=== PATIENT | male | born 1990 | race Caucasian/White ===

== ENCOUNTER → 2017-03-15 | Outpatient (REF) | payer OTHER ==
[~2017-03-15] MED LIST: AMOX250S53; TYLENOL WITH CODEINE; VICO5TAB
== END ==
LOC: M LAB REF 13:01
PROVIDERS: ATTEND Physician Assistant Medical
DX: H92.21 Otorrhagia, right ear (principal)

== ENCOUNTER → 2017-08-03 | Outpatient (REF) | payer OTHER | LOC: M LAB REF 16:46 | DX: H92.11 Otorrhea, right ear (principal) | CPT/HCPCS: 87070 ==

== ENCOUNTER → 2018-07-31 | Outpatient (REF) | payer OTHER | LOC: M LAB REF 14:14 | PROVIDERS: ATTEND Physician Assistant Medical | DX: H66.003 Acute suppurative otitis media without spontaneous rupture of ear drum, bilateral (principal) ==

== ENCOUNTER → 2019-12-26 | Outpatient (REF) | payer OTHER | LOC: M LAB REF 12:08 | PROVIDERS: ATTEND Physician Assistant Medical | DX: H92.11 Otorrhea, right ear (principal) ==

== ENCOUNTER → 2020-07-10 | Outpatient (REF) | payer OTHER | LOC: M LAB REF 15:46 | PROVIDERS: ATTEND Nurse Practitioner Women's Health | DX: H92.11 Otorrhea, right ear (principal) ==

== ENCOUNTER → 2020-07-23 | Outpatient (CLI) | payer SELFPAY | LOC: M LABSMTC 10:34 | PROVIDERS: ATTEND Pediatrics | DX: Z20.822 Contact with and (suspected) exposure to COVID-19 (principal) ==

== ENCOUNTER → 2021-03-05 | Outpatient (CLI) | payer OTHER | LOC: M RAD 13:54 | PROVIDERS: ATTEND Physician Assistant Medical | DX: H92.11 Otorrhea, right ear (principal) ==